=== PATIENT | female | born 1955 | race African-American/Black ===

== ENCOUNTER 2018-09-15 11:01 | Emergency (ER) | payer OTHER ==
[~2018-09-15] VITALS: Ht 165.1 cm; Wt 113.0 kg
[~2018-09-15 11:01] MED LIST: ATOR20TA PO; METO25TA6 PO; TRAM50TA3 PO
[2018-09-15] MEDS ORDERED: LIDOCAINE HCL 2% JELLY 5ML TOP ONE (12:30)
[2018-09-15 15:15] VITALS: BP 129/71
== END 2018-09-15 15:33 | disposition home or self-care (01) ==
LOC: ER 11:01
DX: K64.5 Perianal venous thrombosis (principal); M25.552 Pain in left hip; M25.551 Pain in right hip; M54.5 Low back pain; I10 Essential (primary) hypertension; Z88.0 Allergy status to penicillin
CPT/HCPCS: 72100; 73522; 99284

== ENCOUNTER 2018-09-17 12:13 | Emergency (ER) | payer OTHER ==
[~2018-09-17] VITALS: Ht 165.1 cm; Wt 113.0 kg
[2018-09-17] MEDS ORDERED: SODIUM CHLORIDE 0.9% 1,000 ML IV ONE (13:16)
[2018-09-17] MEDS ORDERED: MORPHINE SULFATE 4 MG/ML CPJ (NOT FOR IM USE) IV STA (13:16)
[2018-09-17] MEDS ORDERED: ONDANSETRON HCL 4MG/2ML INJ IV STA (13:16)
[2018-09-17 14:59] LABS: BASOPHILS % 0.3 % (0.0-2.0); EOSINOPHILS % 0.6 % (0.0-5.0); HEMATOCRIT. 42.7 % (36.0-48.0); HEMOGLOBIN. 14.3 g/dL (12.0-16.0); LYMPHOCYTES % 29.7 % (20.0-50.0); MEAN CORPUSCULAR HEMOGLOBIN 31.6 pg (28.0-32.0); MEAN CORPUSCULAR VOLUME 94.5 fL (81.0-99.0); MEAN PLATELET VOLUME 8.2 fl (7.4-10.4); MONOCYTES % 5.3 % (2.0-8.0); NEUTROPHILS % 64.1 % (40.0-76.0); PLATELET 316 x1000/uL (130-400); RED BLOOD CELL COUNT 4.53 mill/uL (4.2-5.4); RED CELL DISTRIBUTION WIDTH 14.4 % (11.6-14.6)
[2018-09-17 15:09] LABS: CHLORIDE 103 mEq/L (98-107); PARTIAL THROMBOPLASTIN TIME 28.1 sec (23.4-31.0); PROTHROMBIN TIME 10.1 sec (9.1-11.1)
[2018-09-17] MEDS ORDERED: KETOROLAC 30MG/ML VIAL IV ONE (16:45)
[2018-09-17 16:55] LABS: CLARITY URINE CLEAR (CLEAR); COLOR URINE YELLOW (YELLOW); KETONES URINE TRACE (NEGATIVE); LEUKOCYTE ESTERASE URINE NEGATIVE (NEGATIVE); NITRITE URINE NEGATIVE (NEGATIVE); OCCULT BLOOD URINE 3+ (NEGATIVE); PH URINE 5.5 (4.5-8.0); PROTEIN URINE TRACE (NEGATIVE)
[2018-09-17 17:59] VITALS: BP 108/60
== END 2018-09-17 18:01 | disposition home or self-care (01) ==
LOC: ER 12:13 → CANBEDREQ 18:04
DX: K64.4 Residual hemorrhoidal skin tags (principal); K62.5 Hemorrhage of anus and rectum; E66.9 Obesity, unspecified; I10 Essential (primary) hypertension; R10.2 Pelvic and perineal pain; R10.9 Unspecified abdominal pain; E78.5 Hyperlipidemia, unspecified; Z88.0 Allergy status to penicillin
CPT/HCPCS: 36415; 71045; 74176; 80053; 81003; 83690; 83880; 84484; 85025; 85610; 85730; 86850; 86900; 86901; 93005; 96361; 96374; 96375; 99285; J1885; J2270; J2405; J7030

== ENCOUNTER 2019-06-18 15:47 | Inpatient (IN) | payer OTHER ==
[~2019-06-18] VITALS: Ht 165.1 cm; Wt 116.6 kg
[2019-06-18] MEDS ORDERED: ONDANSETRON HCL 4MG/2ML INJ IV ONE (16:15)
[2019-06-18] MEDS ORDERED: SODIUM CHLORIDE 0.9% 500 ML IV ONE (16:15)
[2019-06-18] MEDS ORDERED: ASPIRIN 325MG TABLET PO ONE (16:15)
[2019-06-18] MEDS ORDERED: ADENOSINE 3 MG/ML 2ML VIAL IV ONE (16:30)
[2019-06-18] MEDS ORDERED: SODIUM CHLORIDE 0.9% 1000ML BAG (SEPSIS BOLUS) IV ONE (16:30)
[2019-06-18] MEDS ORDERED: LEVOFLOXACIN 750MG PREMIX 150 ML IV ONE (16:30)
[2019-06-18 17:15] LABS: BG BASE EXCESS -0.5 mmol/L (-2.0-2.0); BG CARBOXYHEMOGLOBIN 1.4 % (0.5-1.5); BG DEOXYHEMOGLOBIN 3.4 % (0.0-5.0); BG FRACTION INSPIRED OXYGEN 21; BG HCO3 ACT 23.4 mmol/L (22.0-26.0); BG METHEMOGLOBIN 0.2 % (0.0-1.5); BG OXYGEN SATURATION 96.5 % (92.0-98.5); BG PCO2 36.1 mmHg (35.0-45.0); BG PH 7.429 (7.350-7.450); BG SAMPLE SITE RIGHT BRACHIAL; BG TOTAL HEMOGLOBIN 15.2 g/dL (12.0-18.0); BG VENT MODE ROOM AIR
[2019-06-18 17:21] LABS: BASOPHILS % 0.7 % (0.0-2.0); EOSINOPHILS % 0.9 % (0.0-5.0); HEMATOCRIT. 45.7 % (36.0-48.0); HEMOGLOBIN. 15.3 g/dL (12.0-16.0); MEAN CORPUSCULAR HEMOGLOBIN 31.9 pg (28.0-32.0); MEAN CORPUSCULAR VOLUME 95.4 fL (81.0-99.0); MEAN PLATELET VOLUME 8.7 fl (7.4-10.4); MONOCYTES % 6.5 % (2.0-8.0); NEUTROPHILS % 59.9 % (40.0-76.0); PLATELET 265 x1000/uL (130-400); RED BLOOD CELL COUNT 4.79 mill/uL (4.2-5.4); RED CELL DISTRIBUTION WIDTH 14.2 % (11.6-14.6)
[2019-06-18 17:26] LABS: CLARITY URINE CLEAR (CLEAR); COLOR URINE YELLOW (YELLOW); KETONES URINE NEGATIVE (NEGATIVE); LEUKOCYTE ESTERASE URINE NEGATIVE (NEGATIVE); NITRITE URINE NEGATIVE (NEGATIVE); OCCULT BLOOD URINE TRACE (NEGATIVE); PROTEIN URINE 1+ (NEGATIVE); SPECIFIC GRAVITY URINE 1.009 (1.005-1.030); UROBILINOGEN URINE 0.2 E.U./dL (0.2-1.0)
[2019-06-18 17:29] LABS: CHLORIDE 108 mEq/L (98-107)
[2019-06-18] MEDS ORDERED: KETOROLAC 30MG/ML VIAL IV NR (18:00)
[2019-06-18 21:17] VITALS: BP 140/72
[2019-06-18 21:25] VITALS: BP 140/72
[2019-06-18] MEDS ORDERED: ACETAMINOPHEN 325MG TABLET PO PRN (22:15)
[2019-06-18] MEDS ORDERED: DIPHENHYDRAMINE 50MG CAPSULE PO PRN (22:15)
[2019-06-18] MEDS: NITROGLYCERIN 0.4MG TABLET SL SL PRN (22:24)
[2019-06-19] VITALS: BP 131/56
[2019-06-19] MEDS: DILTIAZEM HCL 60MG TABLET PO SCH ×2 (00:29→05:49)
[2019-06-19 04:00] VITALS: BP 103/64
[2019-06-19 08:00] VITALS: BP 121/54
[2019-06-19 08:59] LABS: BASOPHILS % 0.3 % (0.0-2.0); EOSINOPHILS % 1.3 % (0.0-5.0); HEMATOCRIT. 40.9 % (36.0-48.0); HEMOGLOBIN. 13.8 g/dL (12.0-16.0); LYMPHOCYTES % 35.9 % (20.0-50.0); MEAN CORPUSCULAR HEMOGLOBIN 31.9 pg (28.0-32.0); MEAN CORPUSCULAR VOLUME 94.9 fL (81.0-99.0); MEAN PLATELET VOLUME 8.5 fl (7.4-10.4); NEUTROPHILS % 55.5 % (40.0-76.0); PLATELET 255 x1000/uL (130-400); RED BLOOD CELL COUNT 4.32 mill/uL (4.2-5.4); RED CELL DISTRIBUTION WIDTH 14.1 % (11.6-14.6)
[2019-06-19] MEDS: ENOXAPARIN 30MG/0.3ML SYR SUBCUT SCH ×2 (09:04→21:04)
[2019-06-19] MEDS: NITROGLYCERIN 0.4MG TABLET SL SL PRN (09:19)
[2019-06-19 09:30] LABS: CHLORIDE 110 mEq/L (98-107)
[2019-06-19 09:38] LABS: HDL CHOLESTEROL 43 mg/dL (40-59); LDL CHOLESTEROL 145 mg/dL (5-100)
[2019-06-19 12:00] VITALS: BP 124/65
[2019-06-19] MEDS: METOPROLOL TARTRATE 25MG TABLET PO SCH ×2 (13:01→21:05)
[2019-06-19] MEDS: ASPIRIN 81MG EC TABLET PO SCH (13:01)
[2019-06-19 14:48] LABS: *AMPHETAMINES SCREEN URINE NEGATIVE (NEGATIVE); *BARBITURATES SCREEN URINE NEGATIVE (NEGATIVE); *BENZODIAZEPINES SCREEN URINE NEGATIVE (NEGATIVE); *COCAINE SCREEN URINE NEGATIVE (NEGATIVE); CANNABINOID URINE SCREEN NEGATIVE (NEGATIVE); METHADONE URINE SCREEN NEGATIVE (NEGATIVE); PHENCYCLIDINE URINE SCREEN NEGATIVE (NEGATIVE)
[2019-06-19 14:49] LABS: OPIATES URINE SCREEN NEGATIVE (NEGATIVE)
[2019-06-19 16:00] VITALS: BP 125/58
[2019-06-19 20:00] VITALS: BP 144/74
[2019-06-19] MEDS: HYDROCODONE/ACETAMINOPHEN 5/325MG TABLET PO PRN (20:21)
[2019-06-19] MEDS: ATORVASTATIN CALCIUM 20MG TABLET PO SCH (21:04)
[2019-06-19] MEDS ORDERED: IOHEXOL-350 100 ML BOTTLE ONE (21:29)
[2019-06-20] VITALS: BP 113/57
[2019-06-20 04:00] VITALS: BP 113/58
[2019-06-20] MEDS: HYDROCODONE/ACETAMINOPHEN 5/325MG TABLET PO PRN ×4 (05:21→22:22)
[2019-06-20 08:00] VITALS: BP 131/52
[2019-06-20] MEDS: NITROGLYCERIN 0.4MG TABLET SL SL PRN (09:09)
[2019-06-20] MEDS: METOPROLOL TARTRATE 25MG TABLET PO SCH ×2 (09:09→21:38)
[2019-06-20] MEDS: ENOXAPARIN 30MG/0.3ML SYR SUBCUT SCH ×2 (09:09→21:38)
[2019-06-20] MEDS: ASPIRIN 81MG EC TABLET PO SCH (09:09)
[2019-06-20] MEDS ORDERED: REGADENOSON 0.4 MG/5 ML IV ONE (11:30)
[2019-06-20 12:00] VITALS: BP 131/52
[2019-06-20 16:00] VITALS: BP 133/55
[2019-06-20 20:00] VITALS: BP 116/54
[2019-06-20] MEDS: ATORVASTATIN CALCIUM 20MG TABLET PO SCH (21:37)
[2019-06-20] MEDS: FAMOTIDINE 20MG TABLET PO SCH (21:38)
[2019-06-21] VITALS: BP 112/56
[2019-06-21 04:00] VITALS: BP 124/55
[2019-06-21 07:02] LABS: BASOPHILS % 0.3 % (0.0-2.0); EOSINOPHILS % 1.5 % (0.0-5.0); LYMPHOCYTES % 37.5 % (20.0-50.0); MEAN CORPUSCULAR HEMOGLOBIN 31.6 pg (28.0-32.0); MEAN CORPUSCULAR VOLUME 95.3 fL (81.0-99.0); MEAN PLATELET VOLUME 8.7 fl (7.4-10.4); MONOCYTES % 7.4 % (2.0-8.0); NEUTROPHILS % 53.3 % (40.0-76.0); PLATELET 273 x1000/uL (130-400); RED BLOOD CELL COUNT 4.41 mill/uL (4.2-5.4); RED CELL DISTRIBUTION WIDTH 13.9 % (11.6-14.6)
[2019-06-21 07:13] LABS: CHLORIDE 106 mEq/L (98-107)
[2019-06-21 08:00] VITALS: BP 130/64
[2019-06-21] MEDS: FAMOTIDINE 20MG TABLET PO SCH (08:15)
[2019-06-21] MEDS: METOPROLOL TARTRATE 25MG TABLET PO SCH (08:16)
[2019-06-21] MEDS: ASPIRIN 81MG EC TABLET PO SCH (08:18)
[2019-06-21] MEDS: ENOXAPARIN 30MG/0.3ML SYR SUBCUT SCH (08:19)
[2019-06-21] MEDS: HYDROCODONE/ACETAMINOPHEN 5/325MG TABLET PO PRN ×2 (08:19→13:04)
[2019-06-21] MEDS ORDERED: REGADENOSON 0.4 MG/5 ML IV ONE (09:56)
[2019-06-21 12:00] VITALS: BP 144/94
[2019-06-21 12:07] VITALS: BP 144/94
[2019-06-21 16:00] VITALS: BP 108/76
== END 2019-06-21 17:10 | disposition home or self-care (01) | DRG 309 ==
LOC: ER 15:47 → 7WST 17:47 → EDBEDREQSVC 17:53 → EDBEDREQ 17:53 → EDBEDREQTM 17:53 → ENRESERV 18:21
PROVIDERS: ADMIT Internal Medicine; ATTEND Internal Medicine
DX: I47.1 Supraventricular tachycardia (principal); Z68.41 Body mass index [BMI] 40.0-44.9, adult; R07.89 Other chest pain; I10 Essential (primary) hypertension; E87.8 Other disorders of electrolyte and fluid balance, not elsewhere classified; E66.01 Morbid (severe) obesity due to excess calories; M19.90 Unspecified osteoarthritis, unspecified site; I20.9 Angina pectoris, unspecified; M79.10 Myalgia, unspecified site; E78.5 Hyperlipidemia, unspecified; I48.92 Unspecified atrial flutter; Z82.49 Family history of ischemic heart disease and other diseases of the circulatory system; Z88.0 Allergy status to penicillin; Z79.899 Other long term (current) drug therapy; Z71.3 Dietary counseling and surveillance
CPT/HCPCS: 36415; 36600; 71045; 71275; 73502; 78452; 80048; 80061; 80305; 81003; 82375; 82805; 83605; 83735; 83880; 84145; 84484; 85379; 93005; 93017; 93306; 94660; 96365; 96375; 99291; A9500; C1893; J0153; J1650; J1885; J1956; J2405; J2785; J7030; J7040; Q0163; Q9967; A4315

== ENCOUNTER 2020-07-09 12:25 | Inpatient (IN) | payer OTHER ==
[~2020-07-09] VITALS: Ht 162.6 cm; Wt 108.9 kg
[~2020-07-09 12:25] MED LIST changes: -ATOR20TA PO
[2020-07-09] MEDS ORDERED: ACETAMINOPHEN 325MG TABLET PO STA (13:45)
[2020-07-09 15:11] LABS: BASOPHILS % 0.8 % (0.0-2.0); EOSINOPHILS % 0.1 % (0.0-5.0); HEMATOCRIT. 46.9 % (36.0-48.0); LYMPHOCYTES % 16.1 % (20.0-50.0); MEAN CORPUSCULAR HEMOGLOBIN 31.6 pg (28.0-32.0); MEAN CORPUSCULAR VOLUME 92.6 fL (81.0-99.0); MEAN PLATELET VOLUME 8.5 fl (7.4-10.4); MONOCYTES % 7.9 % (2.0-8.0); NEUTROPHILS % 75.1 % (40.0-76.0); PLATELET 252 x1000/uL (130-400); RED BLOOD CELL COUNT 5.06 mill/uL (4.2-5.4); RED CELL DISTRIBUTION WIDTH 14.1 % (11.6-14.6)
[2020-07-09 15:23] LABS: CLARITY URINE CLOUDY (CLEAR); COLOR URINE DARK YELLOW (YELLOW); KETONES URINE 1+ (NEGATIVE); LEUKOCYTE ESTERASE URINE TRACE (NEGATIVE); NITRITE URINE NEGATIVE (NEGATIVE); OCCULT BLOOD URINE TRACE (NEGATIVE); PROTEIN URINE 2+ (NEGATIVE); SPECIFIC GRAVITY URINE 1.029 (1.005-1.030)
[2020-07-09] MEDS ORDERED: KETOROLAC 15MG/ML VIAL IV ONE (16:15)
[2020-07-09] MEDS ORDERED: CEFTRIAXONE 1 G PREMIX 50 ML IV ONE (17:00)
[2020-07-09 17:05] LABS: CHLORIDE 104 mEq/L (98-107)
[2020-07-09 17:47] LABS: CREATINE KINASE 213 IU/L (26-192)
[2020-07-09] MEDS ORDERED: SODIUM CHLORIDE 0.9% 1,000 ML IV NR (18:00)
[2020-07-09] MEDS ORDERED: HYDROCODONE/ACETAMINOPHEN 5/325MG TABLET PO ONE (20:15)
[2020-07-09 20:38] LABS: D-DIMER 1.22 mg/L FEU (<0.50); PROTHROMBIN TIME 10.9 sec (9.6-11.0)
[2020-07-10 02:50] VITALS: BP_SYST 138; BP_SYST 148; BP_DIAS 88
[2020-07-10] MEDS: MORPHINE SULFATE 2 MG/ML CPJ (NOT FOR IM USE) IV PRN (03:20)
[2020-07-10] MEDS ORDERED: ASPI-1497 PO (03:32)
[2020-07-10] MEDS ORDERED: FAMO20TA8 PO (03:32)
[2020-07-10] MEDS ORDERED: NAPR-681 PO (03:32)
[2020-07-10] MEDS ORDERED: ATOR10TA69 PO (03:32)
[2020-07-10] MEDS ORDERED: HYDROCODONE/ACETAMINOPHEN 5/325MG TABLET PO PRN (03:45)
[2020-07-10 04:00] VITALS: BP_SYST 130; BP_SYST 135; BP_DIAS 68; BP_DIAS 79
[2020-07-10 08:00] VITALS: BP 149/76
[2020-07-10] MEDS: ENOXAPARIN 30MG/0.3ML SYR SUBCUT SCH ×2 (08:27→21:00)
[2020-07-10] MEDS: ACETAMINOPHEN 650MG/20.3ML UDC PO PRN ×2 (09:05→21:01)
[2020-07-10 12:00] VITALS: BP 131/76
[2020-07-10] MEDS: LEVOFLOXACIN 750MG PREMIX 150 ML IV SCH ×2 (13:00→13:14)
[2020-07-10 15:53] VITALS: BP 122/75
[2020-07-10 20:00] VITALS: BP 151/92
[2020-07-10] MEDS: ONDANSETRON HCL 4MG/2ML INJ IV PRN (21:04)
[2020-07-10] MEDS ORDERED: CLONIDINE 0.1MG TABLET PO PRN (22:45)
[2020-07-11] VITALS (7 sets, daily range): BP systolic 95–136; BP diastolic 50–82
[2020-07-11] MEDS: MORPHINE SULFATE 2 MG/ML CPJ (NOT FOR IM USE) IV PRN ×3 (04:01→21:32)
[2020-07-11] MEDS: ENOXAPARIN 30MG/0.3ML SYR SUBCUT SCH ×2 (09:02→21:31)
[2020-07-11] MEDS: ACETAMINOPHEN 650MG/20.3ML UDC PO PRN (09:03)
[2020-07-11] MEDS: ONDANSETRON HCL 4MG/2ML INJ IV PRN ×2 (09:11→16:03)
[2020-07-11] MEDS: LEVOFLOXACIN 750MG PREMIX 150 ML IV SCH (12:24)
[2020-07-11] MEDS: DEXT 5%/0.45% NACL 1000ML 1,000 ML IV SCH (12:25)
[2020-07-11] MEDS: ACETAMINOPHEN 325MG TABLET PO PRN (16:53)
[2020-07-11 18:54] LABS: BASOPHILS % 0.4 % (0.0-2.0); HEMATOCRIT. 44.8 % (36.0-48.0); HEMOGLOBIN. 15.4 g/dL (12.0-16.0); LYMPHOCYTES % 34.5 % (20.0-50.0); MEAN CORPUSCULAR HEMOGLOBIN 31.9 pg (28.0-32.0); MEAN CORPUSCULAR VOLUME 92.5 fL (81.0-99.0); MEAN PLATELET VOLUME 8.3 fl (7.4-10.4); MONOCYTES % 7.2 % (2.0-8.0); NEUTROPHILS % 57.9 % (40.0-76.0); PLATELET 187 x1000/uL (130-400); RED BLOOD CELL COUNT 4.84 mill/uL (4.2-5.4); RED CELL DISTRIBUTION WIDTH 13.8 % (11.6-14.6)
[2020-07-11 19:06] LABS: CHLORIDE 103 mEq/L (98-107)
[2020-07-12] VITALS: BP 106/57
[2020-07-12 04:00] VITALS: BP 137/66
[2020-07-12] MEDS: DEXT 5%/0.45% NACL 1000ML 1,000 ML IV SCH ×2 (05:50→14:06)
[2020-07-12] MEDS: ACETAMINOPHEN 325MG TABLET PO PRN (05:50)
[2020-07-12 08:00] VITALS: BP 121/58
[2020-07-12] MEDS: ENOXAPARIN 30MG/0.3ML SYR SUBCUT SCH ×2 (09:43→20:28)
[2020-07-12 12:00] VITALS: BP 138/72
[2020-07-12] MEDS: MORPHINE SULFATE 2 MG/ML CPJ (NOT FOR IM USE) IV PRN (12:02)
[2020-07-12] MEDS: LEVOFLOXACIN 750MG PREMIX 150 ML IV SCH (12:02)
[2020-07-12] MEDS ORDERED: IOHEXOL-300 100 ML BOTTLE ONE (12:54)
[2020-07-12] MEDS ORDERED: BISACODYL 10MG SUPP PR NR (13:45)
[2020-07-12 16:00] VITALS: BP 153/103
[2020-07-12 20:00] VITALS: BP 141/86
[2020-07-12] MEDS: ONDANSETRON HCL 4MG/2ML INJ IV PRN (20:28)
[2020-07-13] VITALS: BP 120/62
[2020-07-13] MEDS: DEXT 5%/0.45% NACL 1000ML 1,000 ML IV SCH (01:18)
[2020-07-13 04:00] VITALS: BP 136/79
[2020-07-13 08:00] VITALS: BP 107/75
[2020-07-13] MEDS: ENOXAPARIN 30MG/0.3ML SYR SUBCUT SCH (08:02)
[2020-07-13] MEDS: ONDANSETRON HCL 4MG/2ML INJ IV PRN (08:24)
[2020-07-13 12:00] VITALS: BP 123/80
[2020-07-13 12:13] LABS: BG BASE EXCESS 0.3 mmol/L (-2.0-2.0); BG CARBOXYHEMOGLOBIN 0.9 % (0.5-1.5); BG DEOXYHEMOGLOBIN 8.6 % (0.0-5.0); BG FRACTION INSPIRED OXYGEN 21; BG HCO3 ACT 24.3 mmol/L (22.0-26.0); BG METHEMOGLOBIN 0.3 % (0.0-1.5); BG OXYGEN SATURATION 91.3 % (92.0-98.5); BG OXYHEMOGLOBIN 90.2 % (94.0-97.0); BG PCO2 37.5 mmHg (35.0-45.0); BG PO2 58.7 mmHg (75.0-100.0); BG SAMPLE SITE RIGHT RADIAL; BG TOTAL HEMOGLOBIN 15.7 g/dL (12.0-18.0); BG VENT MODE ROOM AIR
[2020-07-13 13:19] LABS: BASOPHILS % 0.7 % (0.0-2.0); HEMATOCRIT. 45.8 % (36.0-48.0); HEMOGLOBIN. 15.6 g/dL (12.0-16.0); MEAN CORPUSCULAR HEMOGLOBIN 31.3 pg (28.0-32.0); MEAN CORPUSCULAR VOLUME 91.5 fL (81.0-99.0); MEAN PLATELET VOLUME 8.3 fl (7.4-10.4); MONOCYTES % 5.6 % (2.0-8.0); NEUTROPHILS % 68.7 % (40.0-76.0); PLATELET 211 x1000/uL (130-400); RED CELL DISTRIBUTION WIDTH 13.5 % (11.6-14.6)
[2020-07-13 13:26] LABS: CHLORIDE 101 mEq/L (98-107)
[2020-07-13] MEDS: LEVOFLOXACIN 750MG PREMIX 150 ML IV SCH (13:41)
[2020-07-13] MEDS ORDERED: DEXAMETHASONE 10 MG/ML VIAL IV SCH (14:15)
[2020-07-13] MEDS ORDERED: ALBUTEROL 6.7GM HFA INHALER ORI PRN (15:15)
[2020-07-13] MEDS ORDERED: DIPHENHYDRAMINE 50MG/ML VIAL IV PRN (15:15)
[2020-07-13] MEDS ORDERED: CALCIUM CARBONATE 500MG TABLET CHEW PO PRN (15:15)
[2020-07-13] MEDS ORDERED: LORAZEPAM 2MG/ML CPJ IV PRN (15:15)
[2020-07-13 16:00] VITALS: BP 104/55
[2020-07-13] MEDS: ENOXAPARIN 120MG/0.8ML SYR SUBCUT SCH (17:02)
[2020-07-13] MEDS: FAMOTIDINE 20MG/2ML VIAL IV SCH (17:02)
[2020-07-13 20:00] VITALS: BP 124/73
[2020-07-13] MEDS: ACETAMINOPHEN 325MG TABLET PO PRN (22:05)
[2020-07-14] VITALS: BP 127/75
[2020-07-14 04:00] VITALS: BP 117/67
[2020-07-14] MEDS: ENOXAPARIN 120MG/0.8ML SYR SUBCUT SCH ×2 (05:34→17:00)
[2020-07-14 08:00] VITALS: BP 111/77
[2020-07-14] MEDS: FAMOTIDINE 20MG/2ML VIAL IV SCH (08:13)
[2020-07-14 08:25] LABS: BG BASE EXCESS -1.7 mmol/L (-2.0-2.0); BG CARBOXYHEMOGLOBIN 0.3 % (0.5-1.5); BG DEOXYHEMOGLOBIN 10.4 % (0.0-5.0); BG FRACTION INSPIRED OXYGEN 21; BG HCO3 ACT 22.3 mmol/L (22.0-26.0); BG METHEMOGLOBIN 0.3 % (0.0-1.5); BG OXYGEN SATURATION 89.5 % (92.0-98.5); BG PCO2 35.9 mmHg (35.0-45.0); BG PH 7.411 (7.350-7.450); BG PO2 54.1 mmHg (75.0-100.0); BG SAMPLE SITE RIGHT RADIAL; BG TOTAL HEMOGLOBIN 15.6 g/dL (12.0-18.0); BG VENT MODE ROOM AIR
[2020-07-14 12:00] VITALS: BP 152/86
[2020-07-14] MEDS: LEVOFLOXACIN 750MG PREMIX 150 ML IV SCH (12:35)
[2020-07-14 16:00] VITALS: BP 125/54
[2020-07-14] MEDS: DEXAMETHASONE 10 MG/ML VIAL IV SCH (16:55)
[2020-07-14 20:00] VITALS: BP 121/64
[2020-07-14] MEDS: GUAIFENESIN 600MG ER TABLET PO SCH (20:26)
[2020-07-15] VITALS: BP 110/72
[2020-07-15 04:00] VITALS: BP 117/69
[2020-07-15] MEDS: ENOXAPARIN 120MG/0.8ML SYR SUBCUT SCH ×2 (06:30→18:07)
[2020-07-15 08:00] VITALS: BP 104/66
[2020-07-15] MEDS: FAMOTIDINE 20MG/2ML VIAL IV SCH (09:52)
[2020-07-15] MEDS: GUAIFENESIN 600MG ER TABLET PO SCH ×2 (09:53→20:02)
[2020-07-15] MEDS: DEXAMETHASONE 10 MG/ML VIAL IV SCH (09:53)
[2020-07-15 12:00] VITALS: BP 129/69
[2020-07-15 16:00] VITALS: BP 131/73
[2020-07-15 17:34] LABS: BG BASE EXCESS -1.8 mmol/L (-2.0-2.0); BG CARBOXYHEMOGLOBIN 0.6 % (0.5-1.5); BG FRACTION INSPIRED OXYGEN 21; BG METHEMOGLOBIN 0.5 % (0.0-1.5); BG OXYGEN SATURATION 87.9 % (92.0-98.5); BG OXYHEMOGLOBIN 86.9 % (94.0-97.0); BG PCO2 34.9 mmHg (35.0-45.0); BG PH 7.417 (7.350-7.450); BG SAMPLE SITE RIGHT RADIAL; BG TOTAL HEMOGLOBIN 15.4 g/dL (12.0-18.0); BG VENT MODE ROOM AIR
[2020-07-15] MEDS: BENZONATATE 200MG CAPSULE PO SCH (20:02)
[2020-07-15 20:30] VITALS: BP 129/71
[2020-07-16 00:21] VITALS: BP 127/76
[2020-07-16 04:00] VITALS: BP 120/75
[2020-07-16] MEDS: ENOXAPARIN 120MG/0.8ML SYR SUBCUT SCH ×2 (04:28→19:02)
[2020-07-16] MEDS: BENZONATATE 200MG CAPSULE PO SCH ×3 (04:28→20:34)
[2020-07-16 06:27] LABS: BASOPHILS % 0.3 % (0.0-2.0); HEMATOCRIT. 42.7 % (36.0-48.0); HEMOGLOBIN. 14.4 g/dL (12.0-16.0); LYMPHOCYTES % 19.2 % (20.0-50.0); MEAN CORPUSCULAR HEMOGLOBIN 30.6 pg (28.0-32.0); MEAN PLATELET VOLUME 7.8 fl (7.4-10.4); MONOCYTES % 6.8 % (2.0-8.0); NEUTROPHILS % 73.7 % (40.0-76.0); PLATELET 304 x1000/uL (130-400); RED CELL DISTRIBUTION WIDTH 13.7 % (11.6-14.6)
[2020-07-16 07:21] LABS: CHLORIDE 108 mEq/L (98-107)
[2020-07-16 08:00] VITALS: BP 123/75
[2020-07-16] MEDS: GUAIFENESIN 600MG ER TABLET PO SCH ×2 (08:15→20:34)
[2020-07-16] MEDS: DEXAMETHASONE 10 MG/ML VIAL IV SCH (08:15)
[2020-07-16] MEDS: FAMOTIDINE 20MG/2ML VIAL IV SCH (08:15)
[2020-07-16] MEDS: HYDROCODONE/ACETAMINOPHEN 5/325MG TABLET PO PRN (09:03)
[2020-07-16] MEDS ORDERED: POTASSIUM CHLORIDE 20MEQ TABLET SR PO NR (11:00)
[2020-07-16 12:00] VITALS: BP 124/76
[2020-07-16] MEDS ORDERED: BISACODYL 10MG SUPP PR PRN (12:30)
[2020-07-16] MEDS: LACTULOSE 20G/30ML UDC PO PRN (12:35)
[2020-07-16 16:00] VITALS: BP 115/79
[2020-07-16] MEDS ORDERED: LACTULOSE 20G/30ML UDC PO NR (16:00)
[2020-07-16 20:00] VITALS: BP 111/75
[2020-07-17] VITALS: BP 131/79
[2020-07-17 04:00] VITALS: BP 127/78
[2020-07-17] MEDS: BENZONATATE 200MG CAPSULE PO SCH ×3 (05:11→20:16)
[2020-07-17] MEDS: ENOXAPARIN 120MG/0.8ML SYR SUBCUT SCH ×2 (05:12→17:08)
[2020-07-17] MEDS: LACTULOSE 20G/30ML UDC PO PRN (05:47)
[2020-07-17 08:00] VITALS: BP 146/80
[2020-07-17] MEDS: FAMOTIDINE 20MG/2ML VIAL IV SCH (08:00)
[2020-07-17] MEDS: GUAIFENESIN 600MG ER TABLET PO SCH ×2 (08:00→20:16)
[2020-07-17] MEDS: DEXAMETHASONE 10 MG/ML VIAL IV SCH (08:01)
[2020-07-17 12:00] VITALS: BP 127/87
[2020-07-17 16:00] VITALS: BP 127/83
[2020-07-17] MEDS: HYDROCODONE/ACETAMINOPHEN 5/325MG TABLET PO PRN (17:13)
[2020-07-17 20:00] VITALS: BP 119/74
[2020-07-18] VITALS: BP 127/78
[2020-07-18 04:00] VITALS: BP 148/66
[2020-07-18] MEDS: BENZONATATE 200MG CAPSULE PO SCH ×3 (05:31→20:15)
[2020-07-18] MEDS: ENOXAPARIN 120MG/0.8ML SYR SUBCUT SCH ×2 (05:31→17:00)
[2020-07-18 08:00] VITALS: BP 131/82
[2020-07-18] MEDS: FAMOTIDINE 20MG/2ML VIAL IV SCH (08:48)
[2020-07-18] MEDS: GUAIFENESIN 600MG ER TABLET PO SCH ×2 (08:48→20:15)
[2020-07-18] MEDS: DEXAMETHASONE 10 MG/ML VIAL IV SCH (08:48)
[2020-07-18] MEDS: HYDROCODONE/ACETAMINOPHEN 5/325MG TABLET PO PRN ×2 (09:13→18:34)
[2020-07-18 12:00] VITALS: BP 147/91
[2020-07-18 16:00] VITALS: BP 128/74
[2020-07-18 20:00] VITALS: BP 142/87
[2020-07-19 00:05] VITALS: BP 140/81
[2020-07-19 04:00] VITALS: BP 138/86
[2020-07-19] MEDS: ENOXAPARIN 120MG/0.8ML SYR SUBCUT SCH ×2 (05:59→19:03)
[2020-07-19] MEDS: BENZONATATE 200MG CAPSULE PO SCH ×3 (05:59→22:11)
[2020-07-19 08:00] VITALS: BP 137/92
[2020-07-19] MEDS: FAMOTIDINE 20MG/2ML VIAL IV SCH (08:17)
[2020-07-19] MEDS: DEXAMETHASONE 4MG/ML 1ML VIAL IV SCH (08:17)
[2020-07-19] MEDS: GUAIFENESIN 600MG ER TABLET PO SCH ×2 (08:17→22:11)
[2020-07-19 12:00] VITALS: BP 135/79
[2020-07-19 16:00] VITALS: BP 128/79
[2020-07-19 16:40] LABS: BG BASE EXCESS 2.2 mmol/L (-2.0-2.0); BG CARBOXYHEMOGLOBIN 0.4 % (0.5-1.5); BG FRACTION INSPIRED OXYGEN 21; BG HCO3 ACT 25.9 mmol/L (22.0-26.0); BG METHEMOGLOBIN 0.3 % (0.0-1.5); BG OXYGEN SATURATION 90.9 % (92.0-98.5); BG OXYHEMOGLOBIN 90.3 % (94.0-97.0); BG PCO2 37.7 mmHg (35.0-45.0); BG PH 7.455 (7.350-7.450); BG PO2 57.7 mmHg (75.0-100.0); BG SAMPLE SITE LEFT BRACHIAL; BG TOTAL HEMOGLOBIN 15.6 g/dL (12.0-18.0); BG VENT MODE ROOM AIR
[2020-07-19] MEDS ORDERED: APIX5TAB MT (16:40)
[2020-07-19] MEDS ORDERED: ALBU90AE INH (16:40)
[2020-07-19] MEDS ORDERED: FAMO-135 PO (16:40)
[2020-07-19] MEDS ORDERED: P20 PO (16:40)
[2020-07-19] MEDS: HYDROCODONE/ACETAMINOPHEN 5/325MG TABLET PO PRN (16:47)
[2020-07-19 17:55] LABS: HEMATOCRIT 44.9 % (36.0-48.0); HEMOGLOBIN 15.1 g/dL (12.0-16.0); MEAN CORPUSCULAR VOLUME 92.1 fL (81.0-99.0); PLATELET 438 x1000/uL (130-400); RED BLOOD CELL COUNT 4.88 mill/uL (4.2-5.4); RED CELL DISTRIBUTION WIDTH 13.9 % (11.6-14.6)
[2020-07-19 18:03] LABS: CHLORIDE 108 mEq/L (98-107)
[2020-07-19 20:00] VITALS: BP 123/79
[2020-07-20] VITALS: BP 115/75
[2020-07-20] MEDS: ACETAMINOPHEN 325MG TABLET PO PRN (05:46)
[2020-07-20] MEDS: ENOXAPARIN 120MG/0.8ML SYR SUBCUT SCH ×2 (05:47→18:08)
[2020-07-20] MEDS: BENZONATATE 200MG CAPSULE PO SCH ×2 (05:47→13:16)
[2020-07-20] MEDS: HYDROCODONE/ACETAMINOPHEN 5/325MG TABLET PO PRN (05:56)
[2020-07-20 08:00] VITALS: BP 108/65
[2020-07-20] MEDS: GUAIFENESIN 600MG ER TABLET PO SCH (09:28)
[2020-07-20] MEDS: FAMOTIDINE 20MG/2ML VIAL IV SCH (09:28)
[2020-07-20] MEDS: DEXAMETHASONE 4MG/ML 1ML VIAL IV SCH (09:28)
[2020-07-20 11:07] VITALS: BP 108/65
[2020-07-20 12:00] VITALS: BP 114/70
[2020-07-20 16:00] VITALS: BP 107/71
== END 2020-07-20 20:28 | disposition home or self-care (01) | DRG 871 ==
LOC: ER 12:25 → MICUSO 19:53 → EDBEDREQSVC 20:32 → EDBEDREQ 20:32 → EDBEDREQTM 20:32 → 7WST 07-10 01:20 → 8WST 07-10 16:03 → 7WST 07-11 06:10
PROVIDERS: ADMIT Internal Medicine; ATTEND Internal Medicine
DX: A41.89 Other specified sepsis (principal); U07.1 COVID-19; J96.01 Acute respiratory failure with hypoxia; J12.89 Other viral pneumonia; E87.1 Hypo-osmolality and hyponatremia; D68.59 Other primary thrombophilia; E66.2 Morbid (severe) obesity with alveolar hypoventilation; Z68.41 Body mass index [BMI] 40.0-44.9, adult; I10 Essential (primary) hypertension; Z20.828 Contact with and (suspected) exposure to other viral communicable diseases; E78.5 Hyperlipidemia, unspecified; K59.00 Constipation, unspecified; R73.9 Hyperglycemia, unspecified; R74.0 Nonspecific elevation of levels of transaminase and lactic acid dehydrogenase [LDH]; Z88.0 Allergy status to penicillin; Z79.899 Other long term (current) drug therapy; Z79.01 Long term (current) use of anticoagulants; Z79.82 Long term (current) use of aspirin; H66.90 Otitis media, unspecified, unspecified ear; R51 Headache
CPT/HCPCS: 36415; 36600; 70487; 71045; 74018; 80053; 81003; 82375; 82550; 82728; 82805; 83605; 83615; 83880; 84145; 84484; 85025; 85027; 85379; 85384; 86140; 86850; 86900; 87635; 93005; 96365; 99285; J0696; J1100; J1650; J1885; J1956; J2270; J2405; J3490; Q9967

== ENCOUNTER 2024-07-26 17:56 | Emergency (ER) | payer OTHER ==
[~2024-07-26] VITALS: Ht 170.2 cm; Wt 100.0 kg
[~2024-07-26 17:56] MED LIST changes: +ALBU90AE INH; +APIX5TAB MT; +ASPI-1497 PO; +ATOR10TA69 PO; +FAMO-135 PO; +FAMO20TA8 PO; +NAPR-681 PO; +P20 PO
[2024-07-26 18:31] VITALS: O2SAT 97
[2024-07-26] MEDS: HYDROCODONE/ACETAMINOPHEN 5/325MG TABLET PO ONE (20:28)
[2024-07-26] MEDS ORDERED: MELO-104 MT (21:09)
[2024-07-26] MEDS ORDERED: CYCL10TA21 MT (21:09)
[2024-07-26 21:26] VITALS: BP 144/78; PULSE 78; RESP 18; TEMP 36.94740; O2SAT 100
[2024-07-26] MEDS ORDERED: HYDR-4001 MT (21:43)
== END 2024-07-26 21:05 | disposition home or self-care (01) ==
LOC: ER 17:56
DX: M79.10 Myalgia, unspecified site (principal); I10 Essential (primary) hypertension; Z79.899 Other long term (current) drug therapy; Z88.0 Allergy status to penicillin
CPT/HCPCS: 71045; 73030; 73610; 93005; 99284